=== PATIENT | male | born 2000 | race Two or more races ===

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

== ENCOUNTER 2024-07-21 08:10 | Emergency (ER) | payer MEDICAID, SELFPAY ==
[2024-07-21 08:11] VITALS: BMI 28.1
--- NOTE | 2024-07-21 08:15 | EKG_ITS ---
[facility] Test Date: 2024-07-21 Pat Name: CHAKA JO Department: Room: - Gender: Male Financial Reporting Specialist: : 2000 Requested By: Andreas Thomson (PATRICIA) Order Number: [id number] Reading MD: Andreas Thomson (MANAGER RESPIRATORY CARE) Measurements Intervals [place] Rate: 118 P: 22 SD: 127 QRS: 50 QRSD: 97 T: 33 QT: 289 QTc: 406 Interpretive Statements SINUS TACHYCARDIA INDETERMINATE AXIS POSSIBLE RIGHT VENTRICULAR CONDUCTION DELAY [RSR (QR) IN V1/V2] NONSPECIFIC ST ELEVATION [0.05+ mV ST ELEVATION] ABNORMAL RHYTHM ECG No previous ECG available for comparison /store/S0/[id number]/ecg/[id number].pdf
--- NOTE | 2024-07-21 08:23 | PD.EDRME ---
Rapid Medical Screening Exam RME Arrival date/time: 07/21/24 08:10 24-year-old male presents to the emergency department today for complaints of shortness of breath chest pain Chief Complaint: Shortness of Breath/Dyspnea Time Seen by Provider: 07/21/24 08:11
[2024-07-21 08:26] VITALS: BP 134/86; PULSE 109; RESP 27; TEMP 37.8; O2SAT 100
[2024-07-21 08:29] VITALS: BMI 28.1
[2024-07-21] MEDS: ALPRazoLAM 0.25 MG TABLET PO (08:40)
[2024-07-21] MEDS: DEXAMETHASONE SOD PHOS INJ 10 MG/ML VIAL PO (08:41)
--- NOTE | 2024-07-21 08:45 | XR_ITS ---
Examination: AP chest single view Technique : AP portable upright chest single view Exam date and time: July 21, 2024 0857 hours INDICATIONS: Shortness of breath today. FINDINGS: Normal heart size. Lungs are clear. The osseous structures are intact IMPRESSION: No active disease
[2024-07-21] MEDS: ALBUTEROL/IPRATROPIUM (Duoneb) RT SOL 3 ML NEBU INH (08:47)
[2024-07-21 08:48] VITALS: PULSE 105; RESP 25; O2SAT 100
[2024-07-21] MEDS: SODIUM CHLORIDE RT SOL 0.9% 3 ML NEBU INH ×2 (08:56→11:51)
[2024-07-21] MEDS: EPINEPHrine RT SOL 0.5 ML NEBU INH ×2 (08:56→11:51)
[2024-07-21 09:01] VITALS: PULSE 104; RESP 20; O2SAT 95
[2024-07-21 09:03] LABS: Basophils % (Auto) 0 % (0-2.5); Eosinophils # (Auto) 0.2 Thou/mm3 (0.0-0.5); Eosinophils % (Auto) 1 % (0-10); Hematocrit 44.6 % (41.0-53.0); Hemoglobin 16.3 g/dL (13.5-16.0); Immature Granulocytes % (Auto) 0 % (0-0); Immature Granulocytes Auto 0.04 Thou/mm3 (0.00-0.00); Lymphocytes % (Auto) 15 % (10-50); Mean Corpuscular HGB Conc 36.5 g/dl (31.0-37.0); Mean Corpuscular Hemoglobin 29.5 pg (25.0-35.0); Mean Corpuscular Volume 81 fL (80-100); Monocytes % (Auto) 7 % (0-12); Neutrophils # (Auto) 10.6 Thou/mm3 (1.8-7.7); Neutrophils % (Auto) 76 % (37-80); Nucleated Red Blood Cell % 0 /100 WBC (0); Platelet Count 219 Thou/mm3 (140-440); RDW Standard Deviation 36.2 fL (35.1-43.9); Red Blood Count 5.53 Miln/mm3 (4.50-5.90); White Blood Count 13.9 Thou/mm3 (3.8-10.6)
[2024-07-21 09:24] LABS: Alanine Aminotransferase 13 U/L (10-49); Albumin, Serum 4.7 gm/dL (3.5-5.0); Albumin/Globulin Ratio 1.4 (1.2-2.2); Alkaline Phosphatase 57 U/L (46-116); Anion Gap 9 (7-16); Aspartate Amino Transferase 19 U/L (0-34); BUN/Creatinine Ratio 9 Ratio (12-20); Bilirubin,Total 0.9 mg/dL (0.3-1.2); Blood Urea Nitrogen 8 mg/dL (9-23); Calcium 9.3 mg/dL (8.3-10.6); Calcium (Corrected) 9.3 mg/dL (8.5-10.1); Carbon Dioxide 24.7 mMol/L (20.0-31.0); Chloride 107 mMol/L (98-107); Creatinine (Component) 0.9 mg/dL (0.6-1.3); Estimated Creatinine Clearance 129.5 mL/min (>60); Globulin 3.3 gm/dL (2.3-3.5); Glucose 98 mg/dL (74-106); Osmolality,Calculated 279 (275-295); Potassium 3.5 mMol/L (3.4-5.1); Sodium 141 mMol/L (136-145); Troponin I < 0.002 ng/mL (0.0-0.045); eGFR > 60 See Note
--- NOTE | 2024-07-21 09:25 | XR_ITS ---
Examination: AP lateral soft tissue neck 2 views Technique one AP lateral soft tissue neck 2 views Exam date and time: July 21, 2024 0944 hours INDICATIONS: Throat pain difficulty breathing today. FINDINGS: Normal epiglottis No distention hypopharynx No opaque foreign body Mild disc narrowing C4-C5, C5-C6 IMPRESSION: Normal epiglottis No opaque foreign body
[2024-07-21 10:05] VITALS: BP 127/81; PULSE 113; RESP 17; TEMP 37.6; O2SAT 98
[2024-07-21 11:51] VITALS: PULSE 113; RESP 18; O2SAT 99
--- NOTE | 2024-07-21 13:41 | EDNOTE_ITS ---
ED SOB =RME/HPI General Chief Complaint: Shortness of Breath/Dyspnea Stated Complaint: CAN'T REALLY BREATHE SINCE 0700 Time Seen by Provider: 07/21/24 08:11 Arrival date/time: 07/21/24 08:10 RME / HPI RME / HPI Narrative: 07/21/24 08:10 24-year-old male presents to the emergency department today for complaints of shortness of breath chest pain DR. LUX MAIN ED EVALUATION 24 year old male with no stated medical history presents to the ED BIBA from home for evaluation of shortness of breath and chest tightness beginning at 07:00 AM today. Patient additionally reports he has had cough with phlegm x 4 d ays. Denies fevers, chills, sweats. Denies nausea, vomiting, diarrhea, constipation. Denies dysuria, urinary frequency and urgency. Related Data Previous Rx's ?Medication ?Instructions ?Recorded ibuprofen 800 mg tablet 800 mg PO TID PRN pain #30 t abs 04/06/22 Allergies Allergy/AdvReac Type Severity Reaction Status Date / Time No Known Allergies Allergy Verified 07/21/24 08:13 Review of Systems Review of Systems Narrative Review of Systems: GEN: No fever, no chills, no weight loss EYES: No discharge, no visual changes, no pain HEENT: No ear pain, no congestion, no sore throat PULM:+ shortness of breath, + cough CV: +chest tightness, no palpitations GI: No nausea, no vomiting, no diarrhea, no pain, no constipation : No frequency, no urgency, no dysuria MUSC/SKEL: No joint pain, no back pain SKIN: No rash NEURO: No weakness, no headache Past Medical History Past Medical History CARDIAC: Negative Congestive Heart Failure RESPIRATORY: Negative Chronic Obstructive Pulmonary Disease (COPD) GENITOURINARY: Negative Renal Disease ENDOCRINE: Negative Diabetes Mellitus Type 1 or Diabetes Mellitus Type 2 Social History SMOKING STATUS: Never smoker ED Exam Narrative Physical exam: GENERAL APPEARANCE: alert and oriented x 4, well-developed, well-nourished HEENT: Normocephalic, atraumatic; pupils equal, round, reactive to light; EOMI; mucous membranes pink, moist; oropharynx clear NECK: Supple LUNGS: Mild decreased air movement throughout with stridor, no wheezing, no rales, no rhonchi HEART: Regular rate, regular rhythm; normal S1, S2; no murmurs ABDOMEN: non distended; normal BS; soft, no tenderness, no guarding, no rebound; no masses, no organomegaly, no hernia BACK: no CVA tenderness EXTREMITIES: atraumatic; no edema NEUROLOGIC: awake; alert and oriented x4; cranial nerves II-XII grossly intact; no focal sensory or motor deficits PSYCHIATRIC: appropriate mood and affect SKIN: warm, dry, normal color; no rashes Course Course Course Narrative: chest xray ordered to help determine etiology of shortness of breath. Quality Measures none Orders Category Date Time Status Bedside COVID-19 Antigen Test NOW Care 07/21/24 08:43 Completed Bedside Influenza A&B Antigen Test NOW Care 07/21/24 08:43 Completed Engine Designer NOW Care 07/21/24 08:22 Completed EKG (ED ONLY) *Do not use* NOW Care 07/21/24 08:15 Completed EKG (ED Only) Stat Exams 07/21/24 08:15 Draft XR chest 1V portable Stat Exams 07/21/24 08:45 Completed XR soft tissue neck Stat Exams 07/21/24 09:25 Completed CBC Stat Lab 07/21/24 08:40 Completed Comprehensive Metabolic Panel Stat Lab 07/21/24 08:40 Completed Troponin I Stat Lab 07/21/24 08:40 Completed ALPRazoLAM [Xanax] Med 07/21/24 08:22 Discontinued 0.25 mg PO X1 ONE Albuterol/Ipratr Rt Darling [Duoneb Rt Darling] Med 07/21/24 08:22 Discontinued 3 ml INH X1 ONE Dexamethasone Inj [Decadron Inj] Med 07/21/24 08:22 Discontinued 10 mg PO X1 ONE EPINEPHrine Rt Darling [Racemic Epi Rt Darling] Med 07/21/24 08:53 Discontinued 0.5 ml INH X1 ONE EPINEPHrine Rt Darling [Racemic Epi Rt Darling] Med 07/21/24 10:26 Discontinued 0.5 ml INH X1 ONE Sodium Chloride Rt Darling 0.9% [NS Rt Darling 0.9%] Med 07/21/24 08:53 Discontinued 3 ml INH PRN PRN Sodium Chloride Rt Darling 0.9% [NS Rt Darling 0.9%] Med 07/21/24 10:26 Discontinued 3 ml INH PRN PRN Reevaluation(s) Reevaluation #1: Patients symptoms improved after first breathing treatment although still reports feeling some chest tightness and shortness of breath. Patient saturating 93% on room air. Will order a second breathing treatment. Time: 10:20 Reevaluation #2: After second breathing treatment patient feels much improved. Saturating 96% on room air. We reviewed all the results, analysis, and treatment plans. Patient is amenable to discharge. Strict return precautions were outlined. Time: 13:50 Vital Signs Vital signs: Vital Signs Temperature 100.1 F 07/21/24 08:26 Pulse Rate 109 H 07/21/24 08:26 Respiratory Rate 27 H 07/21/24 08:26 Blood Pressure 134/86 H 07/21/24 08:26 Pulse Oximetry (%) 100 07/21/24 08:26 Pulse ox is 100% on room air which is adequate. Shortness of Breath / Dyspnea MDM Narrative MDM Narrative:: Shaina Lambert, am scribing for and in the presence of Dr. Lux. Patient data External records reviewed:: [facility] previous records (I reviewed ED visit on 04/06/2022 ) Clinical information provided by:: patient Social determinants that could affect healthcare access:: none Patient has the following chronic illnesses:: No chronic medical hx reported How is presenting disease/condition affected by chronic disease/condition?: no chronic disease Evaluation data The following diagnostics were reviewed and interpreted by me:: lab results, radiology exam(s) and EKG tracing(s) Lab and/or radiology exams considered but not ordered:: None Interpretation Summary: Ordering Physician: Berto CEDENO)Andreas NP Date of Service: 07/21/24 Procedure(s): XR chest 1V portable Accession Number(s): [id number] cc: Andreas Thomson NP, NP; Yaron Menjivar MD; NO PRIMARY/FAMILY,PHYSICIAN~ Examination: AP chest single view Technique : AP portable upright chest single view Exam date and time: July 21, 2024 0857 hours INDICATIONS: Shortness of breath today. FINDINGS: Normal heart size. Lungs are clear. The osseous structures are intact IMPRESSION: No active disease Dictated By: Yaron Menjivar MD Signed By: <Electronically signed by Yaron Menjivar MD in OV>07/21/24 0943 Ordering Physician: Yeny Lux MD Date of Service: 07/21/24 Procedure(s): XR soft tissue neck Accession Number(s): [id number] cc: Yaron Menjivar MD; NO PRIMARY/FAMILY,PHYSICIAN; Yeny Lux MD~ Examination: AP lateral soft tissue neck 2 views Technique one AP lateral soft tissue neck 2 views Exam date and time: July 21, 2024 0944 hours INDICATIONS: Throat pain difficulty breathing today. FINDINGS: Normal epiglottis No distention hypopharynx No opaque foreign body Mild disc narrowing C4-C5, C5-C6 IMPRESSION: Normal epiglottis No opaque foreign body Dictated By: Yaron Menjivar MD Signed By:<Electronically signed by Yaron Menjivar MD in OV>07/21/24 1033 Medications / Prescriptions Medications or Prescriptions considered but not ordered:: None Medication administrations:: Medication Administration History Discontinued Medications Albuterol/Ipratropium (Albuterol/Ipratropium (Duoneb) Rt Darling 3 Ml Nebu) 3 ml INH X1 ONE Stop: 07/21/24 08:23 Last Admin: 07/21/24 08:47 Dose: 3 ml Documented By: MICHEAL Alprazolam (Alprazolam 0.25 Mg Tablet) 0.25 mg PO X1 ONE Stop: 07/21/24 08:23 Last Admin: 07/21/24 08:40 Dose: 0.25 mg Documented By: SPRING Dexamethasone Sodium Phosphate (Dexamethasone Sod Phos Inj 10 Mg/Ml Vial) 10 mg PO X1 ONE Stop: 07/21/24 08:23 Last Admin: 07/21/24 08:41 Dose: 10 mg Documented By: SPRING Comments: MED GIVEN PO Epinephrine (Epinephrine Rt Darling 0.5 Ml Nebu) 0.5 ml INH X1 ONE Stop: 07/21/24 08:54 Last Admin: 07/21/24 08:56 Dose: 0.5 ml Documented By: MICHEAL Epinephrine (Epinephrine Rt Darling 0.5 Ml Nebu) 0.5 ml INH X1 ONE Stop: 07/21/24 10:27 Last Admin: 07/21/24 11:51 Dose: 0.5 ml Documented By: MICHEAL Sodium Chloride (Sodium Chloride Rt Darling 0.9% 3 Ml Nebu) 3 ml INH PRN PRN PRN Reason: SOLN Stop: 08/20/24 08:52 Last Admin: 07/21/24 11:51 Dose: 3 ml Documented By: Admin: 07/21/24 08:56 Dose: 3 ml Documented By: MICHEAL Sodium Chloride (Sodium Chloride Rt Darling 0.9% 3 Ml Nebu) 3 ml INH PRN PRN PRN Reason: SOLN Stop: 08/20/24 10:25 See above Consultations Consultation(s) initiated? (list below): No Diagnosis Shortness of Breath Differential Diagnosis: acute exacerbation of chronic obstructive airways disease, congestive heart failure, community acquired pneumonia, asthma with exacerbation and pulmonary embolism Most likely diagnosis given after review of the tests above:: Cough Stridor Bronchitis Admission Indicated Admission indicated?: not indicated Admission Request Was there a request for admission?: No Disposition Plan Disposition Plan: Discharge Discharge Attestation Discharge Attestation: The patient and all family members were given an opportunity to ask questions and understood the discharge instructions. Discharge instructions specifically effects, indications for sooner follow up or return to the emergency department, and the expected course of current diagnosis. Patient condition: Stable Discharge Plan Plan Patient Disposition: HOME (Self Care) Prescriptions/Referrals Prescriptions/Med Rec: No Action ibuprofen 800 mg tablet 800 mg PO TID PRN (Reason: pain) Qty: 30 0RF Referrals: No Primary/Family,Physician [Primary Care Provider] - In 1 week Problem List Clinical Impression: Cough, Stridor, Bronchitis Patient/Caregiver Discharge Instructions Education Materials: ED Bronchitis, No Antibiotic (Adult) Print Language: Iraqi Stand Alone Forms: Brenda Award Info., Work/School Release, Patient Portal Info Letter
== END 2024-07-21 14:53 | disposition home or self-care (01) ==
PROVIDERS: Nurse Practitioner Primary Care; Emergency Provider Emergency Medicine
DX: J40 Bronchitis, not specified as acute or chronic (principal); R06.1 Stridor
CPT/HCPCS: 36415; 70360; 71045; 80053; 84484; 85025; 87400; 87811; 93005; 94640; 99284; A9270; J1100